=== PATIENT | female | born 2000 | race Two or more races ===

== ENCOUNTER 2020-05-14 16:26 | Observation (INO) | payer MEDICAID ==
[~2020-05-14] VITALS: Ht 166 cm; Wt 168.0 kg
[2020-05-14] MEDS ORDERED: PNV1TABL50 PO (20:02)
== END 2020-05-14 20:47 | disposition home or self-care (01) ==
LOC: 8 EST LDRP 16:26
PROVIDERS: ADMIT Obstetrics & Gynecology; ATTEND Obstetrics & Gynecology
DX: O62.9 Abnormality of forces of labor, unspecified (principal); O13.3 Gestational [pregnancy-induced] hypertension without significant proteinuria, third trimester; Z3A.38 38 weeks gestation of pregnancy
CPT/HCPCS: 59025; 76805; 76818; G0378; 99281

== ENCOUNTER 2020-05-15 00:25 | Inpatient (IN) | payer MEDICAID, OTHER ==
[~2020-05-15] VITALS: Ht 166 cm; Wt 76.2 kg
[~2020-05-15 00:25] MED LIST: PNV1TABL50 PO
[2020-05-15] MEDS ORDERED: LIDOCAINE HCL 1% 20ML VIAL (Pyxis) INJ INFIL SCH (01:00)
[2020-05-15] MEDS ORDERED: RHO(D) IMMUNE GLOBULIN 300 MCG/SYR IM ONE (01:00)
[2020-05-15 01:49] LABS: BASOPHILS % 0.2 % (0.0-2.0); EOSINOPHILS % 0.5 % (0.0-5.0); HEMATOCRIT. 35.6 % (36.0-48.0); HEMOGLOBIN. 12.1 g/dL (12.0-16.0); LYMPHOCYTES % 20.9 % (20.0-50.0); MEAN CORPUSCULAR HEMOGLOBIN 31.6 pg (28.0-32.0); MEAN CORPUSCULAR VOLUME 92.5 fL (81.0-99.0); MEAN PLATELET VOLUME 11.1 fl (7.4-10.4); MONOCYTES % 8.6 % (2.0-8.0); NEUTROPHILS % 69.8 % (40.0-76.0); PLATELET 144 x1000/uL (130-400); RED BLOOD CELL COUNT 3.85 mill/uL (4.2-5.4); RED CELL DISTRIBUTION WIDTH 13.7 % (11.6-14.6)
[2020-05-15] MEDS: BUTORPHANOL TARTRATE 2 MG/ML VIAL IV PRN ×2 (01:52→17:01)
[2020-05-15] MEDS: DEXT 5%/LACTATED RINGERS 1,000 ML IV SCH ×2 (02:00→04:36)
[2020-05-15] MEDS ORDERED: CLINDAMYCIN 900 MG in DEXTROSE 5% WATER 50 ML IV SCH (02:00)
[2020-05-15] MEDS ORDERED: DEXT 5%/LR + PITOCIN 20UNITS/L 1,000 ML IV SCH ×2 (02:00→19:30)
[2020-05-15 02:17] LABS: CLARITY URINE CLEAR (CLEAR); COLOR URINE YELLOW (YELLOW); KETONES URINE NEGATIVE (NEGATIVE); LEUKOCYTE ESTERASE URINE TRACE (NEGATIVE); NITRITE URINE NEGATIVE (NEGATIVE); OCCULT BLOOD URINE TRACE (NEGATIVE); PROTEIN URINE NEGATIVE (NEGATIVE); SPECIFIC GRAVITY URINE 1.017 (1.005-1.030)
[2020-05-15 02:49] LABS: INR 0.9; PARTIAL THROMBOPLASTIN TIME 27.8 sec (23.4-31.0); PROTHROMBIN TIME 9.8 sec (9.6-11.0)
[2020-05-15 02:53] LABS: METHADONE URINE SCREEN NEGATIVE (NEGATIVE)
[2020-05-15 02:54] LABS: *AMPHETAMINES SCREEN URINE NEGATIVE (NEGATIVE); *BARBITURATES SCREEN URINE NEGATIVE (NEGATIVE); *BENZODIAZEPINES SCREEN URINE NEGATIVE (NEGATIVE); *COCAINE SCREEN URINE NEGATIVE (NEGATIVE); CANNABINOID URINE SCREEN NEGATIVE (NEGATIVE); OPIATES URINE SCREEN NEGATIVE (NEGATIVE); PHENCYCLIDINE URINE SCREEN NEGATIVE (NEGATIVE)
[2020-05-15] MEDS ORDERED: ROPIVACAINE HCL/PF EPIDURAL 200 ML EPI SCH (03:15)
[2020-05-15] MEDS ORDERED: ACETAMINOPHEN 500MG TABLET PO NR (04:00)
[2020-05-15] MEDS ORDERED: FENTANYL CITRATE/PF 50MCG/ML 2ML VIAL ONE (10:24)
[2020-05-15] MEDS ORDERED: LIDOCAINE HCL/PF 1% 10 MG/ML 5ML VIAL ONE ×2 (10:25→16:49)
[2020-05-15] MEDS ORDERED: BUPIVACAINE HCL/PF 0.25% (2.5MG/ML) 10ML ONE (12:45)
[2020-05-15] MEDS ORDERED: SODIUM CHLORIDE 0.9% 10ML VIAL ONE (12:45)
[2020-05-15] MEDS: CLINDAMYCIN 900 MG PREMIX 50 ML IV SCH ×2 (13:41→22:00)
[2020-05-15] MEDS ORDERED: ROPIVACAINE HCL 2MG/ML (0.2%) 100ML BAG IR ONE (17:15)
[2020-05-15] MEDS ORDERED: ROPIVACAINE HCL/PF EPIDURAL 200 ML EPI NR (17:30)
[2020-05-15] MEDS ORDERED: GLYCERIN/WITCH HAZEL LEAF MEDICATED PAD TOP PRN (19:30)
[2020-05-15] MEDS ORDERED: LANOLIN OINT 7GM TUBE TOP PRN (19:30)
[2020-05-15] MEDS ORDERED: IBUPROFEN 400MG TABLET PO PRN (19:30)
[2020-05-15] MEDS ORDERED: DIPHENHYDRAMINE 25MG CAPSULE PO PRN (19:30)
[2020-05-15] MEDS ORDERED: HEMORRHOIDAL SUPP PR PRN (19:30)
[2020-05-15] MEDS ORDERED: BENZOCAINE/LANOLIN/ALOE VERA SPRAY TOP PRN (19:30)
[2020-05-15] MEDS ORDERED: BISACODYL 10MG SUPP PR PRN (19:30)
[2020-05-15] MEDS: IBUPROFEN 800MG TABLET PO PRN (20:12)
[2020-05-15 21:00] VITALS: BP 112/74
[2020-05-15] MEDS: SIMETHICONE 80MG TABLET CHEW PO SCH (21:00)
[2020-05-15] MEDS ORDERED: DOCUSATE SODIUM 100MG CAPSULE PO SCH (21:00)
[2020-05-15] MEDS ORDERED: MAGNESIUM/ALUMINUM HYDROXIDE/SIMETHICONE 30ML UDC PO SCH (21:00)
[2020-05-15 21:30] VITALS: BP 111/73
[2020-05-15 22:00] VITALS: BP 112/73
[2020-05-16] MEDS ORDERED: FERR325T23 PO (06:44)
[2020-05-16] MEDS ORDERED: IBUP-2030 PO (06:44)
[2020-05-16] MEDS ORDERED: FERROUS SULFATE 325MG TABLET PO SCH (07:30)
[2020-05-16] MEDS: IBUPROFEN 800MG TABLET PO PRN ×2 (08:25→13:59)
[2020-05-16] MEDS: SIMETHICONE 80MG TABLET CHEW PO SCH (08:26)
[2020-05-16 08:30] VITALS: BP 99/51
[2020-05-16] MEDS ORDERED: PRENATAL VIT/FE FUMARATE/FA TABLET PO SCH (09:00)
[2020-05-16 10:52] LABS: BASOPHILS % 0.3 % (0.0-2.0); EOSINOPHILS % 0.1 % (0.0-5.0); HEMATOCRIT. 28.3 % (36.0-48.0); HEMOGLOBIN. 9.4 g/dL (12.0-16.0); LYMPHOCYTES % 12.3 % (20.0-50.0); MEAN CORPUSCULAR HEMOGLOBIN 31.4 pg (28.0-32.0); MEAN CORPUSCULAR VOLUME 94.2 fL (81.0-99.0); MEAN PLATELET VOLUME 11.1 fl (7.4-10.4); MONOCYTES % 8.2 % (2.0-8.0); NEUTROPHILS % 79.1 % (40.0-76.0); PLATELET 114 x1000/uL (130-400); RED CELL DISTRIBUTION WIDTH 13.8 % (11.6-14.6)
[2020-05-16 16:40] VITALS: BP 106/54
[2020-05-16 18:45] VITALS: BP 106/60
[2020-05-16 19:50] VITALS: BP 110/62
[2020-05-16] MEDS ORDERED: ACETAMINOPHEN WITH CODEINE 300/30MG TABLET PO PRN (20:00)
== END 2020-05-16 20:20 | disposition home or self-care (01) | DRG 560 ==
LOC: INTOOBSV 00:25 → 8 EST LDRP 00:25 → OBSVTOIN 00:25 → 8EST 21:00
PROVIDERS: ADMIT Obstetrics & Gynecology; ATTEND Obstetrics & Gynecology
PROC: 10E0XZZ Delivery of Products of Conception, External Approach (ICD-10-PCS; principal; 2020-05-15)
PROC: 0W8NXZZ Division of Female Perineum, External Approach (ICD-10-PCS; 2020-05-15)
PROC: 3E0R3BZ Introduction of Anesthetic Agent into Spinal Canal, Percutaneous Approach (ICD-10-PCS; 2020-05-15)
PROC: 00HU33Z Insertion of Infusion Device into Spinal Canal, Percutaneous Approach (ICD-10-PCS; 2020-05-15)
DX: O80 Encounter for full-term uncomplicated delivery (principal); Z3A.00 Weeks of gestation of pregnancy not specified; Z37.0 Single live birth
CPT/HCPCS: 36415; 80305; 81003; 85025; 86592; 86703; 86762; 86850; 86900; 87340; 99281; J0595; J2590; J2795; J3010; J3490; J7040; J7060; J7121; A4315

== ENCOUNTER 2020-05-19 18:16 | Emergency (ER) | payer OTHER ==
[~2020-05-19] VITALS: Ht 160 cm; Wt 70.0 kg
[~2020-05-19 18:16] MED LIST changes: +FERR325T23 PO; +IBUP-2030 PO
[2020-05-19 22:51] VITALS: BP 125/83
[2020-05-19] MEDS ORDERED: CEPH500C2 MT (22:56)
== END 2020-05-19 23:04 | disposition home or self-care (01) ==
LOC: ER 18:16
DX: N64.4 Mastodynia (principal); Z88.0 Allergy status to penicillin; Z98.890 Other specified postprocedural states
CPT/HCPCS: 99281